=== PATIENT | male | born 1985 | race Caucasian/White ===

== ENCOUNTER 2016-12-10 03:48 | Emergency (ER) | payer SELFPAY ==
[~2016-12-10] VITALS: Ht 182.9 cm; Wt 77.1 kg
[2016-12-10] MEDS ORDERED: IV SET PRIMARY 1 EA INFUS.SET MC ONE ×2 (04:00→05:26)
[2016-12-10] MEDS ORDERED: ONDANSETRON HCL/PF 4 MG/2 ML VIAL ONE (04:00)
[2016-12-10] MEDS ORDERED: IV NS 0.9% 1,000 ML ONE ×2 (04:00→05:26)
--- NOTE | 2016-12-10 04:00 | NUR ---
PT BIBA#[id number] S/P VOMIT UP BLOOD, PT C/O ABD PAIN WITH N/V X 1 DAY. PT AOX4 RR EVEN AND UNLABORD. NO SOB NOTED. NAD NOTED. NO NVD AT THIS TIME. PT NOT DIAPHORETIC. PT GOWNED AND PLACED ON MONITOR WAITING FOR MD JACINTO.
[2016-12-10] MEDS: IV NS 0.9% 1,000 ML BAG IV ONE ×2 (04:14→05:32)
[2016-12-10] MEDS: ONDANSETRON HCL/PF 4 MG/2 ML VIAL IVP ONE (04:15)
--- NOTE | 2016-12-10 04:20 | NUR ---
PT TO CT.
[2016-12-10 04:21] LABS: BASOPHILS # (AUTO) 0.1 /CMM (0.0-0.2); BASOPHILS % (AUTO) 0.3 % (0.0-2.0); HEMATOCRIT 55 % (39-51); HEMOGLOBIN 18.5 g/dL (13.5-17.5); LYMPHOCYTES # (AUTO) 1.2 /CMM (0.8-4.8); LYMPHOCYTES % (AUTO) 7.2 % (20.0-44.0); MEAN CORPUSCULAR HEMOGLOBIN 31 PG (26.0-33.0); MEAN CORPUSCULAR HGB CONC 34 g/dl (31.0-36.0); MEAN CORPUSCULAR VOLUME 91 fL (80-96); MONOCYTES # (AUTO) 0.5 /CMM (0.1-1.30); MONOCYTES % (AUTO) 3.2 % (2.0-12.0); NEUTROPHILS # (AUTO) 15.3 /CMM (1.8-8.9); NEUTROPHILS % (AUTO) 89.3 % (43.0-81.0); PLATELET COUNT (AUTO) 321 /CMM (150-450); RDW COEFFICIENT OF VARIATION 13.6 (11.5-15.0); RED BLOOD CELL COUNT(AUTO) 5.98 MIL/uL (4.5-6.0); WHITE BLOOD COUNT (AUTO) 17.1 K/uL (4.3-11.0)
--- NOTE | 2016-12-10 04:33 | NUR ---
PT RETURNED FROM CT.
--- NOTE | 2016-12-10 04:36 | NUR ---
URINE COLLECTED. CALLED LAB FOR INFECTIOUS DISEASE TECHNICIAN
[2016-12-10 04:38] LABS: INR 0.97 (0.87-1.13); PROTHROMBIN TIME 10.4 SECS (9.5-12.7)
[2016-12-10 04:44] LABS: ALBUMIN 5.1 g/dL (3.4-5.0); BILIRUBIN,DIRECT 0.2 mg/dL (0.0-0.2); BILIRUBIN,TOTAL 1.8 mg/dL (0.2-1.0); CALCIUM, SERUM 10.9 mg/dL (8.5-10.1); CREATININE 1.6 mg/dL (0.6-1.3); POTASSIUM 4.1 mmol/L (3.5-5.1); TOTAL PROTEIN, SERUM 9.3 g/dL (6.4-8.2)
[2016-12-10 05:25] LABS: BILIRUBIN,URINE NEGATIVE (NEGATIVE); BLOOD, URINE NEGATIVE Ery/uL (NEGATIVE); COLOR,URINE YELLOW (YELLOW); KETONES,URINE TRACE (NEGATIVE); LEUKOCYTE ESTERASE ,URINE NEGATIVE (NEGATIVE); NITRITE, URINE NEGATIVE (NEGATIVE); PH,URINE 5.5 (5.0-8.0); PROTEIN,URINE 2+ mg/dl (NEGATIVE); UGLUCOSE NEGATIVE (NEGATIVE); UROBILINOGEN,URINE 0.2 EU/dL (0.2)
[2016-12-10] MEDS ORDERED: KETOROLAC TROMETHAMINE INJ 30 MG/ML VIAL ONE (05:26)
[2016-12-10] MEDS: KETOROLAC TROMETHAMINE INJ 30 MG/ML VIAL IV ONE (05:32)
[2016-12-10 05:37] LABS: APPEARANCE,URINE CLEAR (CLEAR)
--- NOTE | 2016-12-10 05:43 | NUR ---
Patient does not wish to proceed with medical care recommended by . Patient given information related to possible complications, up to and including , which could occur as a result of leaving the hospital at this time. Patient verbalizes understanding of risks involved due to leaving against medical advice. Patient has signed AMA form.
[2016-12-10 05:51] VITALS: BP 132/84
--- NOTE | 2016-12-10 05:51 | NUR ---
IV removed. Catheter intact and site benign. Pressure and 4x4 applied to site. No bleeding noted. Patient discharged to home in stable condition. Written and verbal after care instructions given. Patient verbalizes understanding of instruction. ambulatory with a steady gait
[2016-12-10 05:59] LABS: ADD URINE CULTURE NO; BACTERIA,URINE None seen /HPF (None Seen); RBC,URINE 0-2 /HPF (0-2); WBC,URINE 0-2 /HPF (0-3)
[2016-12-10 06:00] LABS: HYALINE CASTS, URINE Many /LPF (None Seen); MUCUS,URINE Rare /LPF (None Seen); SQUAMOUS EPITHELIAL CELL,UR Few /HPF (None Seen)
[2016-12-10 09:03] LABS: LYMPHOCYTES % (MANUAL) 11 % (16-48); MONOCYTES % (MANUAL) 3 % (0-11.0); NEUTROPHILS % (MANUAL) 86 (42-76); PLATELET ESTIMATE ADEQUATE
[2016-12-10 09:04] LABS: ANISOCYTOSIS 1+
== END 2016-12-10 05:53 | disposition left against medical advice (07) ==
LOC: ER 03:50
DX: F11.23 Opioid dependence with withdrawal (principal)
CPT/HCPCS: 36415; 71010-TC; 80048-TC; 80076-TC; 81000-TC; 83690-TC; 85025-TC; 85730-TC; 86850-TC; A4606; J1885; J2405; J7030; Z7610